=== PATIENT | female | born 1945 | race Caucasian/White ===

== ENCOUNTER → 2019-09-06 | Outpatient (CLI) | payer MEDICARE | END | disposition home or self-care (01) | LOC: PETCFH 11:29 | PROVIDERS: ATTEND Specialist | DX: C50.811 Malignant neoplasm of overlapping sites of right female breast (principal); R91.8 Other nonspecific abnormal finding of lung field; R59.0 Localized enlarged lymph nodes | CPT/HCPCS: 78815; A9552 ==

== ENCOUNTER → 2021-02-21 | Outpatient (CLI) | payer MEDICARE ==
[2021-02-21 12:29] LABS: BASOPHILS % (AUTO) 1 % (0-1); EOSINOPHILS % (AUTO) 1 % (1-7); LYMPHOCYTES % (AUTO) 37 % (22-44); MEAN CORPUSCULAR HEMOGLOBIN 30.4 pg (27.0-34.8); MEAN CORPUSCULAR HGB CONC 33.4 g/dL (32.4-35.8); MEAN PLATELET VOLUME 9.6 fL (7.4-10.4); MONOCYTES % (AUTO) 6 % (2-9); NEUTROPHILS % (AUTO) 55 % (42-75); PLATELET COUNT 238 x10^3/uL (130-400); RED BLOOD COUNT 4.21 x10^6/uL (3.82-5.3); RED CELL DISTRIBUTION WIDTH 14.4 % (9.6-15.2)
[2021-02-21 12:41] LABS: ALANINE AMINOTRANSFERASE 24 U/L (12-78); ALBUMIN 3.8 g/dL (3.4-5.0); ANION GAP 5 mmol/L (5-15); CALCIUM 9.6 mg/dL (8.5-10.1); CHLORIDE 106 mmol/L (98-107); CREATININE 0.95 mg/dL (0.55-1.02)
[2021-02-21 12:43] LABS: ALKALINE PHOSPHATASE 106 U/L (45-117); BILIRUBIN,TOTAL 0.3 mg/dL (0.2-1.0); TOTAL PROTEIN 7.7 g/dL (6.4-8.2)
== END | disposition home or self-care (01) ==
LOC: LAB 12:03
PROVIDERS: ATTEND Specialist
DX: Z51.11 Encounter for antineoplastic chemotherapy (principal); C50.811 Malignant neoplasm of overlapping sites of right female breast; C79.51 Secondary malignant neoplasm of bone; M85.9 Disorder of bone density and structure, unspecified; Z79.899 Other long term (current) drug therapy
CPT/HCPCS: 36415; 80053; 85025; 86300

== ENCOUNTER → 2021-04-04 | Outpatient (CLI) | payer MEDICARE | END | disposition home or self-care (01) | LOC: LAB 13:32 | PROVIDERS: ATTEND Specialist | DX: Z51.11 Encounter for antineoplastic chemotherapy (principal); C50.811 Malignant neoplasm of overlapping sites of right female breast; M85.9 Disorder of bone density and structure, unspecified; C79.51 Secondary malignant neoplasm of bone; Z79.899 Other long term (current) drug therapy ==